=== PATIENT | female | born 1980 | race Hispanic/Latino ===

== ENCOUNTER 2017-11-12 00:50 | Emergency (ER) | payer BC, OTHER ==
[2017-11-12 01:09] VITALS: BP 98/60; RESP 16
[2017-11-12] MEDS ORDERED: Sodium Chloride 0.9% 1,000 ML IV STA ×2 (01:21→01:37)
[2017-11-12 01:59] LABS: EOS % 0.1 % (0.0-4.0); HEMOGLOBIN 12.9 g/dL (12.0-16.0); LYMPH # 0.5 K/uL (1.0-4.3); LYMPH % 3.6 % (20.0-40.0); MEAN CELL VOLUME 92.8 fl (81.0-99.0); MEAN CORPUSCULAR HEMOGLOBIN 31.8 pg (27.0-31.0); MEAN CORPUSCULAR HGB CONC 34.2 g/dL (33.0-37.0); MEAN PLATELET VOLUME 8.2 fl (7.2-11.7); MONO % 7.8 % (0.0-10.0); NEUT # 11.2 K/uL (1.8-7.0); NEUT % 88.5 % (50.0-75.0); PLATELET COUNT 159 K/uL (130-400); RBC 4.05 Mil/uL (3.80-5.20); RED CELL DISTRIBUTION WIDTH 14.1 % (11.5-14.5); WHITE BLOOD COUNT 12.7 K/uL (4.8-10.8)
--- NOTE | 2017-11-12 02:10 | ED PDOC ---
HPI: Abdomen Time Seen by Provider: 11/12/17 01:12 Chief Complaint (Nursing): GI Problem Chief Complaint (Provider): GI Problem History Per: Patient History/Exam Limitations: no limitations Additional Complaint(s): 37 y/o female presents to the ED complaining of flu like symptoms. Reports nausea, headache, body aches. Patient took Advil without relief. States that she was at a constitution party and had some wine. After some time she started getting body aches, headache, vomiting (non-bloody non-bilious). Temperature taken at home was 104. Denies any further medical complaints. Past Medical History Reviewed: Historical Data, Nursing Documentation, Vital Signs Vital Signs: Last Vital Signs Temp 100 F H 11/12/17 03:21 Pulse 103 H 11/12/17 01:05 Resp 16 11/12/17 01:05 BP 98/60 L 11/12/17 01:05 Pulse Ox 97 11/12/17 02:16 - Medical History PMH: Asthma - Surgical History Surgical History: (4) - Family History Family History: States: Unknown Family Hx - Social History Current smoker - smoking cessation education provided: No Alcohol: Social Drugs: Denies - Home Medications Home Medications: Ambulatory Orders Medication Instructions Recorded Oseltamivir [Tamiflu] 75 mg PO BID #10 cap 11/12/17 - Allergies Allergies/Adverse Reactions: Allergies Allergy/AdvReac Type Severity Reaction Status Date / Time lactase [From [employer]] Allergy Mild stomach Verified 11/12/17 01:10 pain Review of Systems ROS Statement: Except As Marked, All Systems Reviewed And Found Negative (As per HPI, otherwise negative) Constitutional: Positive for: Other (Body aches) Gastrointestinal: Positive for: Vomiting (Non-bloody, non-bilious) Neurological: Positive for: Headache Physical Exam - Reviewed Nursing Documentation Reviewed: Yes Vital Signs Reviewed: Yes - Physical Exam Appears: Positive for: Non-toxic, No Acute Distress Head Exam: Positive for: ATRAUMATIC, NORMAL INSPECTION, NORMOCEPHALIC Skin: Positive for: Normal Color, Warm (febrile), Dry Eye Exam: Positive for: EOMI, Normal appearance, PERRL ENT: Positive for: Other (Dry mucus membranes) Neck: Positive for: Normal, Painless ROM, Supple Cardiovascular/Chest: Positive for: Tachycardia. Negative for: Murmur Respiratory: Positive for: Normal Breath Sounds. Negative for: Accessory Muscle Use, Respiratory Distress Gastrointestinal/Abdominal: Positive for: Normal Exam, Bowel Sounds, Soft, Other (Patient is 5 month ; breast feed). Negative for: Tenderness Back: Positive for: Normal Inspection Extremity: Positive for: Normal ROM. Negative for: Deformity Neurologic/Psych: Positive for: Alert, Oriented (x3) - Laboratory Results Result Diagrams: 11/12/17 01:54 11/12/17 01:54 - ECG O2 Sat by Pulse Oximetry: 97 (RA) Pulse Ox Interpretation: Normal Medical Decision Making Medical Decision Making: Time: 01:21 Initial Impression: 37 y/o female with flu-like symptoms Plan: CMP Lactic acid, plasma Urine dipstick Urine CBC w/ differential Tylenol 975mg PO Toradol 15mg IVP Sodium chloride 1L IV Tamiflu cap 75mg PO Blood culture Helplock Insertion Influenza A B Urinalysis Reevaluation Time: 04:20 --Labs reviewed and no clinically significant abnormalities found --Patient reported improvement in symptoms --Although flu was negative, patient won't be treated in ED Clinical impression: Influenza Scribe Attestation: Documented by Lyric Haro acting as a scribe for Brad Ball MD. Scribe Attestation: All medical record entries made by the Scribe were at my direction and personally dictated by me. I have reviewed the chart and agree that the record accurately reflects my personal performance of the history, physical exam, medical decision making, and the department course for this patient. I have also personally directed, reviewed, and agree with the discharge instructions and disposition. Disposition - Clinical Impression Clinical Impression: Influenza - Disposition Disposition: Routine/Home Disposition Time: 04:20 Condition: STABLE Prescriptions: Oseltamivir [Tamiflu] 75 mg PO BID #10 cap Instructions: Flu Forms: [employer] ([place])
[2017-11-12 02:13] LABS: ALB/GLOB RATIO 1.1 (1.0-2.1); ALT/SGPT 77 U/L (9-52); AST/SGOT 46 U/L (14-36); BLOOD UREA NITROGEN 15 mg/dl (7-17); CALCIUM 9.2 mg/dL (8.4-10.2); GFR AFRICAN-AMERICAN > 60; GFR NON-AFRICAN AMERICAN > 60
[2017-11-12 02:19] LABS: SQUAMOUS EPITHIAL < 1 /hpf (0-5); URINE BILIRUBIN NEGATIVE (NEGATIVE); URINE BLOOD NEGATIVE (NEGATIVE); URINE CLARITY SLIGHTY-CLOUDY (Clear); URINE COLOR YELLOW (YELLOW); URINE GLUCOSE (UA) NEG (Normal); URINE LEUKOCYTE ESTERASE NEG Leu/uL (Negative); URINE PROTEIN 30 mg/dL (NEGATIVE); URINE UROBILINOGEN 0.2-1.0 mg/dL (0.2-1.0)
[2017-11-12 04:34] LABS: ANISOCYTOSIS SLIGHT; BANDS 4 % (0-2); LYMPHOCYTE 5 % (20-50); MONOCYTE 10 % (0-10); NEUTROPHIL 81 % (42-75); OVALOCYTES SLIGHT; PLATELET ESTIMATE NORMAL (NORMAL); STOMATOCYTES SLIGHT; TOTAL CELLS COUNTED 100
[2017-11-12 04:45] VITALS: PULSE 92; TEMP 99; O2SAT 99
== END 2017-11-12 01:40 | disposition home or self-care (01) ==
LOC: H.ER 00:50
DX: J11.1 Influenza due to unidentified influenza virus with other respiratory manifestations (principal)
CPT/HCPCS: 80053; 81003; 81025; 83605; 85025; 87040; 87804; 96374; 99284; J1885; J7040